=== PATIENT | male | born 1965 | race Caucasian/White ===

== ENCOUNTER 2017-01-12 09:21 | Inpatient (IN) | payer MEDICARE ==
[~2017-01-12] VITALS: Ht 180.3 cm; Wt 105.2 kg
[2017-01-12] MEDS ORDERED: NACL 0.9% 1,000 ML IV ONE (09:26)
[2017-01-12 09:28] VITALS: BP_SYST 126
[2017-01-12] MEDS ORDERED: ALBUTEROL SULFATE 0.083% 2.5 MG/3 ML VIAL.NEB IH ONE (09:30)
[2017-01-12] MEDS ORDERED: IPRATROPIUM BROM 0.5 MG/2.5 ML VIAL.NEB (ATROVENT) IH ONE (09:30)
[2017-01-12] MEDS ORDERED: MAGNESIUM SULFATE 50 ML IV ONE (09:30)
[2017-01-12] MEDS ORDERED: ASPIRIN 325 MG TABLET PO ONE (09:30)
[2017-01-12] MEDS ORDERED: methylPREDNISolone SOD SUCC/PF 62.5 MG/ML VIAL IVP ONE (09:30)
[2017-01-12 09:50] LABS: BASOPHILS # (AUTO) 0.1 K/uL (0.0-0.2); BASOPHILS % (AUTO) 0.7 % (0.0-2.0); EOSINOPHILS # (AUTO) 0.1 K/uL (0.0-0.4); EOSINOPHILS % (AUTO) 1.4 % (0.0-4.0); HEMATOCRIT 47.8 % (36-54); LYMPHOCYTES # (AUTO) 0.9 K/uL (1.0-5.5); LYMPHOCYTES % (AUTO) 8.9 % (20.5-51.5); MEAN CORPUSCULAR HEMOGLOBIN 32 pg (27-31); MEAN CORPUSCULAR HGB CONC 34 % (32-36); MEAN CORPUSCULAR VOLUME 96 fL (79.0-98.0); MONOCYTES % (AUTO) 9.1 % (1.7-9.3); NEUTROPHILS # (AUTO) 8.4 K/uL (1.8-7.7); NEUTROPHILS % (AUTO) 79.9 % (40.0-70.0); PLATELET COUNT (AUTO) 190 K/uL (130-430); RED BLOOD CELL COUNT(AUTO) 4.96 MIL/uL (4.2-6.2); WHITE BLOOD COUNT (AUTO) 10.5 K/uL (4.8-10.8)
[2017-01-12 10:00] LABS: CALCIUM 8.6 mg/dL (8.4-11.0); CREATININE 1.13 mg/dL (0.55-1.30); POTASSIUM 3.6 mmol/L (3.5-5.1)
[2017-01-12 10:04] LABS: PROTHROMBIN TIME 10.7 SECS (9.5-12.5)
[2017-01-12 10:13] LABS: ALBUMIN 3.9 g/dL (3.4-4.8); TOTAL BILIRUBIN 1.7 mg/dL (0.0-1.0); TOTAL PROTEIN, SERUM 7.5 g/dL (6.4-8.3)
[2017-01-12 10:15] LABS: CKMB RELATIVE INDEX 0.3 (0.0-2.9); CREATINE KINASE MB 5.3 ng/mL (0-3.6)
[2017-01-12 10:37] LABS: BILIRUBIN,URINE 1+ (NEGATIVE); BLOOD, URINE NEGATIVE (NEGATIVE); CLARITY/URINE CLEAR (CLEAR); COLOR,URINE YELLOW (YELLOW); GLUCOSE,URINE NEGATIVE (NEGATIVE); KETONES,URINE 1+ (NEGATIVE); LEUKOCYTE ESTERASE ,URINE NEGATIVE (NEGATIVE); NITRITE, URINE NEGATIVE (NEGATIVE); PH,URINE 5.5 (5.0-8.0); PROTEIN URINE TRACE (NEGATIVE)
[2017-01-12 10:50] LABS: BACTERIA,URINE FEW /HPF (None Seen); MUCUS,URINE 1+ /LPF (None Seen); RBC,URINE 0-3 /HPF (0-3); WBC,URINE 0-3 /HPF (0-3)
[2017-01-12 12:56] VITALS: BP_SYST 129
[2017-01-12] MEDS ORDERED: LIP20 PO (12:58)
[2017-01-12] MEDS ORDERED: CARV3.1246 PO (12:58)
[2017-01-12] MEDS ORDERED: SPIR25TA4 PO (12:58)
[2017-01-12] MEDS ORDERED: LISI10TA5 PO (12:58)
[2017-01-12] MEDS ORDERED: NITROGLYCERIN 0.4 MG TAB.SUBL SL PRN (14:15)
[2017-01-12] MEDS ORDERED: ACETAMINOPHEN 325 MG TABLET PO PRN (14:15)
[2017-01-12] MEDS ORDERED: NITROGLYCERIN 1 INCH (GM) OINT. TP ONE (14:30)
[2017-01-12] MEDS ORDERED: FAMOTIDINE 20 MG TABLET PO ONE (14:30)
[2017-01-12] MEDS: IPRATROPIUM/ALBUTEROL SULFATE 3 ML AMPUL.NEB INH SCH ×2 (15:14→23:00)
[2017-01-12 15:46] VITALS: BP_SYST 129
[2017-01-12 16:01] VITALS: BP_SYST 119
[2017-01-12 20:00] VITALS: BP_SYST 100
[2017-01-12] MEDS: CARVEDILOL 3.125 MG TABLET (COREG) PO SCH (21:14)
[2017-01-12] MEDS: NITROGLYCERIN 1 INCH (GM) OINT. TP SCH (21:15)
[2017-01-13] VITALS: BP_SYST 102
[2017-01-13 04:00] VITALS: BP_SYST 125
[2017-01-13 06:46] LABS: BASOPHILS % (AUTO) 0.3 % (0.0-2.0); EOSINOPHILS % (AUTO) 0.1 % (0.0-4.0); HEMATOCRIT 43.5 % (36-54); HEMOGLOBIN 14.6 g/dL (14.0-18.0); LYMPHOCYTES % (AUTO) 6.7 % (20.5-51.5); MEAN CORPUSCULAR HEMOGLOBIN 33 pg (27-31); MEAN CORPUSCULAR HGB CONC 34 % (32-36); MEAN CORPUSCULAR VOLUME 99 fL (79.0-98.0); MONOCYTES % (AUTO) 6.5 % (1.7-9.3); NEUTROPHILS # (AUTO) 13.3 K/uL (1.8-7.7); NEUTROPHILS % (AUTO) 86.4 % (40.0-70.0); PLATELET COUNT (AUTO) 189 K/uL (130-430); RED BLOOD CELL COUNT(AUTO) 4.41 MIL/uL (4.2-6.2)
[2017-01-13 06:54] LABS: CALCIUM 8.6 mg/dL (8.4-11.0); CREATININE 0.99 mg/dL (0.55-1.30); POTASSIUM 4.4 mmol/L (3.5-5.1)
[2017-01-13] MEDS: IPRATROPIUM/ALBUTEROL SULFATE 3 ML AMPUL.NEB INH SCH (07:10)
[2017-01-13 07:15] LABS: WHITE BLOOD COUNT (AUTO) 15.3 K/uL (4.8-10.8)
[2017-01-13 08:02] VITALS: BP_SYST 117
[2017-01-13] MEDS ORDERED: SPIRONOLACTONE 25 MG TABLET (ALDACTONE) PO SCH (09:00)
[2017-01-13] MEDS ORDERED: FAMOTIDINE 20 MG TABLET PO SCH (09:00)
[2017-01-13] MEDS ORDERED: ASPIRIN 81 MG TAB.CHEW PO SCH (09:00)
[2017-01-13] MEDS ORDERED: LISINOPRIL 10 MG TABLET (PRINIVIL) PO SCH (09:00)
[2017-01-13] MEDS ORDERED: ATORVASTATIN 20 MG TABLET PO SCH (09:00)
[2017-01-13] MEDS: NITROGLYCERIN 1 INCH (GM) OINT. TP SCH (09:18)
[2017-01-13] MEDS: CARVEDILOL 3.125 MG TABLET (COREG) PO SCH (09:19)
[2017-01-13 10:00] VITALS: BP_SYST 146
[2017-01-13 10:02] VITALS: BP_SYST 117
[2017-01-13] MEDS ORDERED: FURO-150 PO (10:14)
[2017-01-13 12:28] VITALS: BP_SYST 146
== END 2017-01-13 10:10 | DRG 198 ==
LOC: SED 09:21 → STU 12:27
PROVIDERS: ADMIT Internal Medicine; ATTEND Internal Medicine
DX: R07.89 Other chest pain (principal); I25.2 Old myocardial infarction; I11.0 Hypertensive heart disease with heart failure; I50.20 Unspecified systolic (congestive) heart failure; G89.29 Other chronic pain; M54.9 Dorsalgia, unspecified; E78.5 Hyperlipidemia, unspecified; I25.10 Atherosclerotic heart disease of native coronary artery without angina pectoris; F17.200 Nicotine dependence, unspecified, uncomplicated; I25.5 Ischemic cardiomyopathy; J44.1 Chronic obstructive pulmonary disease with (acute) exacerbation; Z59.0 Homelessness; Z95.1 Presence of aortocoronary bypass graft; Z82.49 Family history of ischemic heart disease and other diseases of the circulatory system
CPT/HCPCS: 36415; 71010; 80048; 80053; 80061; 81000-TC; 82150-TC; 82550-TC; 82553-TC; 83690-TC; 83735-TC; 83880; 84484; 85025; 85610-TC; 85730-TC; 87081; 93005; 94640; 94760; J2930; J3475; J7030